=== PATIENT | male | born 1980 | race Caucasian/White ===

== ENCOUNTER 2020-07-26 19:07 | Inpatient (IN) | payer BC, OTHER ==
[~2020-07-26] VITALS: Ht 172.7 cm; Wt 119.3 kg
--- NOTE | ~2020-07-26 | CON ---
[address] [address] CONSULTATION Name: MELISSA VERMA Room: [address] IN M.R.#: [id number] Admission: 07/26/20 Attend Phys: Stephen Berkowitz MD Discharge: Date of : 84 Report #: [id number] THIS REPORT FOR: //name// cc: JOSE FRANCISCO Kan family physician/PCP JOSE FRANCISCO - [place] family physician/PCP ~ THIS REPORT FOR: //name// CC: [facility] physician/PCP Stephen Berkowitz DATE OF SERVICE: 07/27/2020 CONSULT REQUESTED BY: Armani Joyce DO. INDICATION FOR CONSULTATION: Acute hypoxemic respiratory failure. HISTORY OF PRESENT ILLNESS: This is a 40-year-old gentleman. He is overweight and does appear to have a history consistent with obstructive sleep apnea, not previously diagnosed. His body mass index is elevated to 41. The patient otherwise has been in good health and does not have a history of cardiac or respiratory disease. The patient has now presented to the Emergency Room with the last several days' history of acute shortness of breath. The patient also had a cough. Cough has been either nonproductive or he has brought up small amounts of sputum, he was not able to describe the color of sputum to me. The patient was found to be severely hypoxemic upon arrival. He has been placed on a BiPAP and currently his O2 saturation is being maintained with a BiPAP of 12/6, but he is needing 80% FiO2. The patient remains tachypneic as well with respiratory rates up to 30. He does not in fact have any known history of contact with COVID-19 infected persons. He is not complaining of chest pain. He does not have upper respiratory complaints. He does not have fever or chills. The patient does have swelling of lower extremities. There is no calf pain. He does not have nausea, vomiting, diarrhea or constipation. He denies any urinary complaints. I asked him 12 questions for review of systems. The patient answered to the negative for all other questions except as mentioned above. When I asked him, the patient reported no fevers. According to the ER records, the patient did have a fever for the last 2 weeks. His T-max since arrival is 37.2. PAST MEDICAL HISTORY: Morbid obesity, body mass index is 41. There is a clinical history consistent with obstructive sleep apnea, not previously diagnosed. There is no other past medical history. SOCIAL HISTORY: There is no known history of smoking, ethanol abuse or drug abuse. CURRENT MEDICATIONS: [place] [address] CONSULTATION Name: MELISSA VERMA 111 Room: [address]#: [id number] Admission: 07/26/20 Attend Phys: Stephen Berkowitz MD Discharge: Date of : 84 Report #: [id number] HOME MEDICATIONS: There are no known current home medications. ALLERGIES: No known drug allergies. FAMILY HISTORY: There is no history of COVID-19 in his family. PHYSICAL EXAMINATION: GENERAL: He is an alert, awake and oriented. VITAL SIGNS: Pulse of 70 and blood pressure of 121/82. He is saturating in the high 90s, but he is on 80% BiPAP. He is afebrile with a temperature of 36.6. His temperature was elevated to 37.2 earlier. HEENT: Head is normocephalic and atraumatic. Pupils are equal and reactive. Throat examination is limited due to the presence of BiPAP. Airway does appear to be narrow. I do not see any obvious throat erythema. NECK: Does not show raised JVP, asymmetry, mass or lymph nodes. CHEST: Symmetrical expansion on inspection and palpation. On auscultation, breath sounds are bilaterally equal, decreased, expirations are prolonged. I do not hear any added sounds. HEART: Regular. There is no murmur. ABDOMEN: Soft and nontender. EXTREMITIES: Lower extremities do show 1+ edema bilaterally. There is no calf tenderness. SKIN: Dry and intact. NEUROLOGICAL: Moves all extremities bilaterally equally and spontaneously with no focal deficit identified. LABORATORY DATA: The patient's CTA chest films as well as report are reviewed. There are extensive infiltrates bilaterally consistent with ARDS secondary to infectious etiology. COVID-19 certainly can lead to this picture in alternate explanation, but less likely explanation will be cardiogenic pulmonary edema. The patient's chest x-ray does not show additional findings. The patient's CBC from this morning as well as chemistries performed yesterday are reviewed. I have added chemistries to this morning's labs and these are pending. Arterial blood gas is in [facility] and this is reviewed. Urinalysis in [facility] reviewed. COVID-19 antigen is negative, the PCR is pending. D-dimer was elevated to 1.41. ASSESSMENT AND PLAN: 1. Acute hypoxemic respiratory failure. It appears likely that the patient has acute respiratory distress syndrome, much less likely, but possible etiology will be cardiogenic pulmonary edema secondary to congestive heart failure. Note that the patient is 40 years old and does not have a previous history of cardiac disease. At this time, I have adjusted BiPAP settings to change to average volume assured pressure support, which should help us potentially limit the duration of time, the patient is on a BiPAP. We will see if we can limit BiPAP [address] [address] CONSULTATION Name: MELISSA VERMA 111 Room: [address] M.R.#: [id number] Admission: 07/26/20 Attend Phys: Stephen Berkowitz MD Discharge: Date of : 84 Report #: [id number] to while asleep and p.r.n. We will place him on a continuous pulse oximetry and titrate down FiO2. We will see if we can arrange a heated high-flow oxygen yenifer for use while he is awake. The patient, however, was tachypneic at the time of my examination and we will need to watch the respiratory rate in case we do put him on a heated high-flow nasal cannula. 2. Pulmonary infiltrates/suspected COVID-19/suspected acute respiratory distress syndrome. Considering his severe hypoxemia and respiratory failure, pending further evaluation, I do recommend that we treat him with remdesivir in addition to dexamethasone. I will also broadly cover him with antibiotics. He is currently on azithromycin and ceftriaxone. I switched his ceftriaxone over to Zosyn. I intended to also give him MRSA coverage. I have ordered several labs. We will review labs from this morning and then decide regarding which agent is used to provide him with MRSA coverage. We will continue with atypical coverage as well. 3. Fluid overload/edema. It will certainly also be possible that the patient has cardiomyopathy. This could be a less likely, but possible etiology of this picture. Recommend checking a troponin I. Recommend checking an echo. We will do venous Dopplers as well. CTA chest does not show any blood clots. I do not have a strong feeling either way regarding continuing with high dose anticoagulation or cutting it down to prophylactic dose. There is some evidence of better outcomes if larger than usual dose of Lovenox is used in the patient with COVID-19. I did not change the order per the primary service. 4. Bronchospasm. Breath sounds are decreased, expirations are prolonged. He is tachypneic. I feel that there is bronchospasm as well. Therefore, a rather large dose of dexamethasone of 10 mg q.8 hours, which is approximately equivalent to Solu-Medrol 50 mg q.8 hours, is ordered. This could be cut back this weekend if the patient improves. He is on a negative pressure room and therefore, I will also give him Brovana twice a day. 5. Gastrointestinal prophylaxis. We will order Protonix until the steroid dose is lowered. 6. Clostridium difficile prophylaxis, Florastor. 7. Suspected obstructive sleep apnea. See discussion above. Plan a sleep study outpatient later. The patient is critically ill at this time. Total time spent providing critical care to this patient today exceeds 45 minutes. By: [id number] Hawkins MD /nt
[~2020-07-26 19:07] MED LIST: AMOXICILLIN500 M1 PO
[2020-07-26 20:01] LABS: HEMOGLOBIN 13.2 gm/dL (14.0-18.0); MCH 30.7 pg (26.0-34.0); MCHC 34.7 g/dL (28.0-37.0); MCV 88.5 fL (80.0-100.0); NUCLEATED RBCS 0 /100WBC; PLATELET COUNT* 280 thou/uL (150-400); WBC 6.3 thou/uL (4.0-11.0)
[2020-07-26 20:19] LABS: CREATININE 1.2 mg/dL (0.6-1.3); POTASSIUM 3.7 mmol/L (3.5-5.1)
[2020-07-26 20:24] LABS: ABSOLUTE BASOPHILS 0.1 thou/uL (0.0-0.2); ABSOLUTE EOSINOPHILS 0.1 thou/uL (0.0-0.7); ABSOLUTE LYMPHOCYTES 0.9 thou/uL (0.8-5.3); ABSOLUTE MONOCYTES 0.3 thou/uL (0.0-1.2); ALBUMIN 2.9 g/dL (3.4-5.0); ATYPICAL LYMPHS 4 %; PLATELET ESTIMATE ADEQUATE; TOTAL BILIRUBIN 0.5 mg/dL (<0.1-1.0); TOTAL PROTEIN 7.6 g/dL (6.4-8.2)
[2020-07-26 21:06] LABS: BE -0.1 mmol/L (-2 to +3); PCO2 38.4 mmHg (35.0-45.0); pH 7.418 (7.340-7.450)
[2020-07-26 21:09] LABS: PO2 55.2 mmHg (75.0-100.0)
--- NOTE | 2020-07-26 22:42 | NUR ---
REPORT GIVEN TO INEZ ENGLAND. PT BEING ADMITTED TO ROOM 225.
[2020-07-26 22:44] VITALS: BP 147/85
[2020-07-26 23:00] VITALS: BP 132/83
[2020-07-27 05:22] VITALS: BP 121/82
--- NOTE | 2020-07-27 05:31 | NUR ---
PT ADMITTED TO FLOOR AT 2300 VIA ER NURSE VIBHA. PT PLACED IN ENHANCED PERCAUTIONS PENDING COVID PCR TEST. PT TO REMAIN ON BIPAP IN NEG PRESSURE ROOM. COMPLETED ASSESSMENT AT BEDSIDE, PLEASE REFER TO CHARTING FOR DETAILS. MEDICATIONS ADMINISTERED PER MAR. HOURLY ROUNDING IN PLACE FOR SAFETY. ALL CURRENT NEEDS HAVE BEEN MET, PT ASLEEP IN BED WITH CALL LIGHT WITHIN REACH.
[2020-07-27 10:29] LABS: CHOLESTEROL 189 mg/dL (<200); HDL CHOLESTEROL 24 mg/dL (>40); LDL CHOLESTEROL 113 mg/dL (<100); TC:HDL 7.9 Ratio (Not establshd); TRIGLYCERIDE 261 mg/dL (<150); VLDL 52 mg/dL (<40)
[2020-07-27 10:31] LABS: SERUM ASSESSMENT Clear
[2020-07-27 10:40] LABS: % SATURATION 19 % (20-39); IRON 34 ug/dL (50-175)
[2020-07-27 11:07] LABS: ABSOLUTE LYMPHOCYTES 0.4 thou/uL (0.8-5.3); ABSOLUTE MONOCYTES 0.1 thou/uL (0.0-1.2); ABSOLUTE NEUTROPHILS 5.1 thou/uL (1.6-8.1); BASOPHILS 0.1 %; HEMATOCRIT 37.8 % (42.0-52.0); MCH 30.6 pg (26.0-34.0); MCHC 34.3 g/dL (28.0-37.0); MCV 89.1 fL (80.0-100.0); MONOCYTES 2.4 %; MPV 7.3 fl. (7.2-11.1); NUCLEATED RBCS 0 /100WBC; PLATELET COUNT* 284 thou/uL (150-400); POLYS 90.5 %; RBC 4.24 mil/uL (4.50-6.00); WBC 5.7 thou/uL (4.0-11.0)
[2020-07-27 11:09] LABS: CALCIUM 8.2 mg/dL (8.5-10.1); CREATININE 0.9 mg/dL (0.6-1.3); POTASSIUM 4.1 mmol/L (3.5-5.1)
[2020-07-27 11:14] LABS: ALBUMIN 2.8 g/dL (3.4-5.0); TOTAL BILIRUBIN 0.5 mg/dL (<0.1-1.0); TOTAL PROTEIN 7.5 g/dL (6.4-8.2)
--- NOTE | 2020-07-27 11:23 | NUR ---
Pt is A&O. Resides at home with his . Normally active and independent. No DME. No hx of HH or SNF. Goal is home at hi. PUI. Ramirez consulted. On bipap.
[2020-07-27 14:18] LABS: BE -0.1 mmol/L (-2 to +3); PCO2 40.8 mmHg (35.0-45.0); PO2 63.7 mmHg (75.0-100.0); pH 7.399 (7.340-7.450)
--- NOTE | 2020-07-27 15:33 | 2DMMODE ---
[place] [address] 2 D/M-MODE ECHOCARDIOGRAM Name: MELISSA VERMA 111 Room: [address] IN R#: [id number] Admission: 07/26/20 Attend Phys: Stephen Berkowitz, Discharge: Date of : 84 Date of Service: 07/27/20 1533 Report #: [id number] THIS REPORT FOR: cc: FAM - No family physician/PCP FAM - No family physician/PCP Garret Nino MD [facility] ~ APPROVED REPORT Study performed: 07/27/2020 14:32:35 EXAM: Comprehensive 2D, Doppler, and color-flow Echocardiogram Patient Location: In-Patient Room #: 200 Status: routine BSA: 2.31 HR: 85 bpm BP: 121/82 mmHg Rhythm: NSR Other Information Study Quality: Good Indications Dyspnea 2D Dimensions IVSd: 12.67 (7-11mm) LVOT Diam: 21.51 (18-24mm) LVDd: 45.93 mm PWd: 11.35 (7-11mm) Ascending Ao: 30.44 (22-36mm) LVDs: 26.84 (25-40mm) Aortic Root: 35.80 mm Aortic Valve AoV Peak Anam.: 1.08 m/s AO Peak Gr.: 4.63 mmHg LVOT Max P.20 mmHg AO Mean Gr.: 2.64 mmHg LVOT Mean P.86 mmHg LVOT Max V: 1.02 m/s AO V2 VTI: 20.86 cm LVOT Mean V: 0.62 m/s JESS (VTI): 3.43 cm2 LVOT V1 VTI: 19.67 cm Mitral Valve E/A Ratio: 1.33 MV Decel. Time: 188.55 ms MV E Max Naam.: 0.70 m/[place] [address] 2 D/M-MODE ECHOCARDIOGRAM Name: MELISSA VERMA 111 Room: [address] IN [facility].#: [id number] Admission: 07/26/20 Attend Phys: Stephen Berkowitz, Discharge: Date of : 84 Date of Service: 07/27/20 1533 Report #: [id number] MV PHT: 54.68 ms MVA (PHT): 4.02 cm2 TDI Medial E' Anam.: 0.14 m/s Lateral E' Anam.: 0.15 m/s Pulmonary Valve PV Peak Anam.: 1.01 m/s PV Peak Gr.: 4.12 mmHg Left Ventricle The left ventricle is normal size. There is normal LV segmental wall motion. Borderline concentric left ventricular hypertrophy. Left ventricular systolic function is normal. The left ventricular ejection fraction is within the normal range. LVEF is 65%. The left ventricular diastolic function is normal. Right Ventricle The right ventricle is normal size. The right ventricular systolic function is normal. Atria The left atrium size is normal. The right atrium size is normal. Aortic Valve The aortic valve is normal in structure. No aortic regurgitation is present. There is no aortic valvular stenosis. Mitral Valve The mitral valve is normal in structure. There is no mitral valve regurgitation noted. No evidence of mitral valve stenosis. Tricuspid Valve The tricuspid valve is normal in structure. Trace tricuspid regurgitation. Unable to assess PA pressure. Pulmonic Valve The pulmonary valve is normal in structure. There is no pulmonic valvular regurgitation. Great Vessels The aortic root is normal in size. IVC is normal in size and collapses >50% with inspiration[place] [address] 2 D/M-MODE ECHOCARDIOGRAM Name: MELISSA VERMA 111 Room: [address] IN [facility]#: [id number] Admission: 07/26/20 Attend Phys: Stephen Berkowitz, Discharge: Date of : 84 Date of Service: 07/27/20 1533 Report #: [id number] There is no pericardial effusion. <Conclusion> The left ventricle is normal size. Left ventricular systolic function is normal. The left ventricular ejection fraction is within the normal range. LVEF is 65%. The left ventricular diastolic function is normal. The right ventricle is normal size. The left atrium size is normal. The aortic valve is normal in structure. The mitral valve is normal The tricuspid valve is normal in structure. IVC is normal in size and collapses >50% with inspiration. There is no pericardial effusion. There is normal LV segmental wall motion. Borderline concentric left ventricular hypertrophy. <ELECTRONICALLY SIGNED> By: Garret Nino MD, [facility] 07/27/20 1533 1533 1533 Garret Nino MD, FAC /INF
[2020-07-27 16:30] VITALS: BP 123/89
--- NOTE | 2020-07-27 16:51 | NUR ---
PT A&OX4 VSS, PT REMAINS ON BIPAP. IV TO LAC AND RFA REMAIN PATENT, DRESSINGS C/D/I. SKIN CLEAN, DRY INTACT. DENIES PAIN. PT IS NOW ACCUCHECK, INSULIN ORDERED ON SLIDING SCALE. IV ABX CONTINUE, REMDESIVIR ADDED TO MAR WELL. PT REMAINS CONTINENT OF B/B, URINAL AT BEDSIDE. 750ML EMPTIED THIS AFTERNOON FOLLOWING DOSE OF FUROSEMIDE. DR ASENCIO TO UPDATE PT REQUESTED BY PT. PT PROVIDED PHONE SEWER HEAD FROM HOME AND ASSISTED IN SETTING IT UP AT BEDSIDE. PT RESTS IN BED WITH CALL LIGHT IN REACH. WILL CONTINUE TO MONITOR.
[2020-07-27 17:53] LABS: CALCIUM 8.4 mg/dL (8.5-10.1); MAGNESIUM 2.5 mg/dL (1.8-2.4); POTASSIUM 4.1 mmol/L (3.5-5.1)
[2020-07-27 22:45] LABS: INFLUENZA A ANTIGEN Negative (Negative); INFLUENZA B ANTIGEN Negative (Negative)
[2020-07-28 02:06] LABS: GLYCOHEMOGLOBIN (HGB A1C) 5.5 % (4.8-5.6); HIV-1/HIV-2 ANTIBODY Non Reactive (Non Reactive)
[2020-07-28 04:00] VITALS: BP 104/68
[2020-07-28 04:29] LABS: ABSOLUTE LYMPHOCYTES 0.5 thou/uL (0.8-5.3); ABSOLUTE MONOCYTES 0.3 thou/uL (0.0-1.2); ABSOLUTE NEUTROPHILS 5.7 thou/uL (1.6-8.1); BASOPHILS 0.3 %; HEMATOCRIT 36.2 % (42.0-52.0); HEMOGLOBIN 12.4 gm/dL (14.0-18.0); MCH 30.4 pg (26.0-34.0); MCHC 34.2 g/dL (28.0-37.0); MCV 88.8 fL (80.0-100.0); MONOCYTES 4.6 %; MPV 6.9 fl. (7.2-11.1); NUCLEATED RBCS 0 /100WBC; PLATELET COUNT* 302 thou/uL (150-400); POLYS 87.1 %; RBC 4.08 mil/uL (4.50-6.00); RDW-CV 14.1 % (10.5-14.5); WBC 6.6 thou/uL (4.0-11.0)
[2020-07-28 04:55] LABS: ALBUMIN 2.5 g/dL (3.4-5.0); POTASSIUM 4.4 mmol/L (3.5-5.1); TOTAL BILIRUBIN 0.4 mg/dL (<0.1-1.0); TOTAL PROTEIN 7.1 g/dL (6.4-8.2)
--- NOTE | 2020-07-28 05:45 | NUR ---
ASSUMED CARE OF PT AT 1900. PT IS ALERT AND ORIENTED. VSS. PERRLA. NO COMPLAINTS OF PAIN. PT TOLERATING BIPAP WELL. PT IS IN SINUS RYTHM ON THE TELEMETRY. PT IS RESTING COMFORTABLY IN BED. RESPIRATIONS ARE EVEN AND NONLABORED. WILL CONTINUE TO MONITOR PT.
[2020-07-28 08:00] VITALS: BP 14/68
--- NOTE | 2020-07-28 11:41 | NUR ---
ASSUMED CARE OF PATIENT THIS AM AT 0730. PATIENT IS ALERT AND ORIENTED X 4. HE DENIES PAIN AND DISCOMFORT. PATIENT CONTINUES IN ISOLATION FOR PENDING COVID RESULTS. HE IS ON BIPAP PER RT. TELE SHOWS NSR. MULTIPLE IV ANTIBIOTICS ORDERED. 2ND IV STARTED IN RIGHT ARM. WILL CONTINUE TO MONITOR. O2 SATS >95%.
[2020-07-28 13:06] VITALS: BP 124/80
[2020-07-28 16:49] VITALS: BP 126/86
[2020-07-28 21:11] VITALS: BP 135/81
[2020-07-29] VITALS: BP 113/68
[2020-07-29 04:00] VITALS: BP 124/76
--- NOTE | 2020-07-29 06:11 | NUR ---
PT SLEPT ON AND OFF THIS SHIFT. ASSESSMENT DOCUMENTED. MEDS GIVEN PER E-JAN. IV PATENT, ABX INFUSED. PT PULLED OUT HIS 2ND IV THIS SHIFT. NO REPORTS OF PAIN. PT WORE BIPAP WHILE ASLEEP, HIGH FLOW NC AT 40L WHILE AWAKE. ISOLATION MAINTAINED. WILL CONTINUE WITH PLAN OF CARE.
[2020-07-29 08:00] VITALS: BP 127/86
[2020-07-29 08:02] LABS: HEMATOCRIT 34.2 % (42.0-52.0); HEMOGLOBIN 11.4 gm/dL (14.0-18.0); MCH 29.6 pg (26.0-34.0); MCHC 33.3 g/dL (28.0-37.0); MCV 88.9 fL (80.0-100.0); MPV 7.9 fl. (7.2-11.1); NUCLEATED RBCS 0 /100WBC; PLATELET COUNT* 373 thou/uL (150-400); RBC 3.85 mil/uL (4.50-6.00); RDW-CV 14.2 % (10.5-14.5); WBC 13.7 thou/uL (4.0-11.0)
[2020-07-29 08:11] LABS: ALBUMIN 2.6 g/dL (3.4-5.0); CALCIUM 7.7 mg/dL (8.5-10.1); CREATININE 1.1 mg/dL (0.6-1.3); POTASSIUM 4.6 mmol/L (3.5-5.1); TOTAL BILIRUBIN 0.3 mg/dL (<0.1-1.0)
[2020-07-29 10:03] LABS: ABSOLUTE LYMPHOCYTES 0.8 thou/uL (0.8-5.3); ABSOLUTE MONOCYTES 0.3 thou/uL (0.0-1.2); ABSOLUTE NEUTROPHILS 12.6 thou/uL (1.6-8.1)
[2020-07-29 10:04] LABS: PLATELET ESTIMATE ADEQUATE
[2020-07-29 10:10] LABS: URINE BILIRUBIN NEGATIVE (Negative); URINE BLOOD NEGATIVE (Negative); URINE CLARITY CLEAR; URINE COLOR YELLOW; URINE GLUCOSE-RANDOM NEGATIVE (Negative); URINE KETONES NEGATIVE (Negative); URINE LEUKOCYTES NEGATIVE (Negative); URINE NITRITE NEGATIVE (Negative); URINE PROTEIN NEGATIVE (Negative); URINE SPECIFIC GRAVITY 1.025 (1.005-1.030)
--- NOTE | 2020-07-29 16:00 | NUR ---
ASSUMED CARE OF PATIENT THIS AM AT 0730. PATIENT IS ALERT AND ORIENTED X 4. HE DENIES PAIN AND DISCOMFORT. TELE SHOWS CONTINUED NSR. PATIENT IS ON 40 LITERS HIGH FLOW O2. IV ANTIBIOTICS CONTINUED. UA SENT TO LAB. 2ND IV SITE STARTED FOR MEDICATION ADMINISTRATION. WILL CONTINUE TO MONITOR PATIENT PROGRESS. NO FALLS OR INJURY.
[2020-07-29 17:23] VITALS: BP 129/81
[2020-07-29 22:00] VITALS: BP 126/87
[2020-07-30 04:00] VITALS: BP 131/86
--- NOTE | 2020-07-30 06:32 | NUR ---
PT A&OX4, ON 35L NC HIGH FLOW-BIPAP WHILE SLEEPING, VSS, PT SR ON TELE MONITOR, IV ABX GIVEN ORDERED, FLUID RESTRICTION MAINTAINED - PHYSICIAN NOTE OF 07/29 STATES, "HYPONATREMIA CORRECTED, WILL DC FLUID RESTRICTION" - WILL PASS ON TO DAY SHIFT. PT DENIES ANY PAIN OR DISCOMFORT THIS SHIFT. ACCU CHECK COMPLETED, ASSESSEMENT AND ROUNDINGS COMPLETE. WILL CONTINUE TO MONITOR.
[2020-07-30 08:55] VITALS: BP 136/91
--- NOTE | 2020-07-30 10:46 | NUR ---
PT IS IN BED ALERT AND ORIENTED X4 DENIES PAIN OR DISCOMFORT "READY TO GO HOME" LSCTA HACKING COUGH AT TIMES 35L ON HI-FRAN CALL LIGHT IN REACH NO CONERNS BESIDES GETTING OUT OF HERE FROM PATIENT
[2020-07-30 12:42] LABS: ABSOLUTE MONOCYTES 0.7 thou/uL (0.0-1.2); ABSOLUTE NEUTROPHILS 13.3 thou/uL (1.6-8.1); EOSINOPHILS 0.3 %; HEMOGLOBIN 11.7 gm/dL (14.0-18.0); LYMPHOCYTES 6.5 %; MCH 30.2 pg (26.0-34.0); MCHC 33.4 g/dL (28.0-37.0); MCV 90.2 fL (80.0-100.0); MONOCYTES 4.5 %; MPV 7.9 fl. (7.2-11.1); NUCLEATED RBCS 0 /100WBC; PLATELET COUNT* 404 thou/uL (150-400); POLYS 88.7 %; RBC 3.89 mil/uL (4.50-6.00); RDW-CV 14.2 % (10.5-14.5)
[2020-07-30 12:50] LABS: ALBUMIN 2.5 g/dL (3.4-5.0); CALCIUM 7.8 mg/dL (8.5-10.1); MAGNESIUM 2.5 mg/dL (1.8-2.4); PHOSPHORUS* 4.4 mg/dL (2.5-4.9); POTASSIUM 4.2 mmol/L (3.5-5.1); TOTAL BILIRUBIN 0.3 mg/dL (<0.1-1.0); TOTAL PROTEIN 6.4 g/dL (6.4-8.2)
[2020-07-30 20:39] VITALS: BP 133/86
[2020-07-30 23:57] VITALS: BP 140/77
[2020-07-31 04:29] VITALS: BP 133/83
[2020-07-31 04:43] LABS: ABSOLUTE LYMPHOCYTES 1.1 thou/uL (0.8-5.3); ABSOLUTE MONOCYTES 0.7 thou/uL (0.0-1.2); ABSOLUTE NEUTROPHILS 12.1 thou/uL (1.6-8.1); BASOPHILS 0.2 %; HEMATOCRIT 35.7 % (42.0-52.0); LYMPHOCYTES 7.7 %; MCHC 33.6 g/dL (28.0-37.0); MCV 89.2 fL (80.0-100.0); MONOCYTES 5.1 %; MPV 7.5 fl. (7.2-11.1); NUCLEATED RBCS 0 /100WBC; PLATELET COUNT* 416 thou/uL (150-400); RBC 4.01 mil/uL (4.50-6.00); RDW-CV 14.1 % (10.5-14.5); WBC 13.9 thou/uL (4.0-11.0)
--- NOTE | 2020-07-31 05:10 | NUR ---
PT IS ABLE TO COMMUNICATE HIS NEEDS TO STAFF EFFECTIVELY. HE HAS DENIED THE NEED FOR PAIN MEDICATION UP TO THIS TIME. PT HAS BEEN WEARING HIS BIPAP OVERNIGHT WHILE SLEEPING. ENHANCED ISOLATION FOR COVID-19+ TESTING MAINTAINED.
[2020-07-31 05:36] LABS: ALBUMIN 2.5 g/dL (3.4-5.0); CALCIUM 7.7 mg/dL (8.5-10.1); CREATININE 0.9 mg/dL (0.6-1.3); MAGNESIUM 2.5 mg/dL (1.8-2.4); POTASSIUM 4.3 mmol/L (3.5-5.1); TOTAL BILIRUBIN 0.4 mg/dL (<0.1-1.0); TOTAL PROTEIN 6.3 g/dL (6.4-8.2)
[2020-07-31 08:00] VITALS: BP 154/89
[2020-07-31 12:00] VITALS: BP 130/80
--- NOTE | 2020-07-31 12:55 | NUR ---
CM faxed letter to Pt's employer confirming hospitalization. Covid positive.
--- NOTE | 2020-07-31 14:12 | NUR ---
Nutrition: Pt admitted COVID+. RD did not enter room. On bipap for sleep. Insulin, steroids. Fluid restriction. Pt with fluid overload, edema. Wt: 265#.H/o OBE, JUAN. Albumin 2.5, prealb 28.6, BG 151-217. BG is elevated. No meal intake recorded yet. No nutrition interventions needed at this time. RD is available if needed. Consider low nutrition risk. GOALS: good meal intake, good BG control.
[2020-07-31 16:41] VITALS: BP 133/86
[2020-07-31 20:27] VITALS: BP 125/89
[2020-08-01] VITALS: BP 131/91
[2020-08-01 04:00] VITALS: BP 122/76
[2020-08-01 04:54] LABS: HEMATOCRIT 39.3 % (42.0-52.0); MCH 29.4 pg (26.0-34.0); MCHC 33.2 g/dL (28.0-37.0); MCV 88.7 fL (80.0-100.0); MPV 7.7 fl. (7.2-11.1); NUCLEATED RBCS 0 /100WBC; PLATELET COUNT* 468 thou/uL (150-400); RBC 4.43 mil/uL (4.50-6.00); WBC 13.4 thou/uL (4.0-11.0)
--- NOTE | 2020-08-01 05:03 | NUR ---
PT IS ABLE TO COMMUNICATE HIS NEEDS TO STAFF EFFECTIVELY. HE HAS DENIED THE NEED FOR PAIN MEDICATION UP TO THIS TIME. HE HAS BEEN WEARING HIS BIPAP AT NIGHT WHILE SLEEPING. ENHANCED ISOLATION PRECAUTIONS FOR COVID-19+ TEST MAINTAINED. XR CONFIRMS PICC LINE PLACED ON 07/31 IS NOT IN CORRECT SPOT; DO NOT USE RIGHT ARM PICC.
[2020-08-01 05:19] LABS: CALCIUM 7.9 mg/dL (8.5-10.1); CREATININE 1.1 mg/dL (0.6-1.3); MAGNESIUM 2.5 mg/dL (1.8-2.4); POTASSIUM 4.3 mmol/L (3.5-5.1)
[2020-08-01 05:20] LABS: PREALBUMIN 35.1 mg/dL (18.0-35.7)
[2020-08-01 05:31] LABS: ABSOLUTE LYMPHOCYTES 0.9 thou/uL (0.8-5.3); ABSOLUTE MONOCYTES 1.2 thou/uL (0.0-1.2); ABSOLUTE NEUTROPHILS 11.3 thou/uL (1.6-8.1); MYELOCYTES 1 %; PLATELET ESTIMATE INCREASED
[2020-08-01 05:32] LABS: ANISOCYTOSIS 1+; POIKILOCYTOSIS 1+; POLYCHROMASIA 1+
[2020-08-01] MEDS ORDERED: DEXAMETHASONE 44 M1 PO (09:28)
[2020-08-01] MEDS ORDERED: PROAIR HFA8.5 GM INH (09:28)
[2020-08-01] MEDS ORDERED: FLORASTOR250 MG PO (09:28)
[2020-08-01 10:53] VITALS: BP 122/76
--- NOTE | 2020-08-01 11:07 | NUR ---
Pt medically stable to dc to home today pending pulm signing off. Ex ox to be completed prior to dc to determine if Pt will need home o2 set up.
[2020-08-01 12:12] VITALS: BP 123/88
--- NOTE | 2020-08-01 12:45 | NUR ---
PT DISCHARGING HOME AWARE OF SELF QUARANTINE NO CONCERNS
== END 2020-08-01 12:55 | disposition home or self-care (01) | DRG 177 ==
LOC: M.ERS 19:07 → M.2W 21:46 → M.TBA-ER 21:46 → M.2W 22:27
PROVIDERS: Emergency Medicine; Internal Medicine; Internal Medicine Critical Care Medicine; ADMIT Internal Medicine; ATTEND Internal Medicine
PROC: 5A09457 Assistance with Respiratory Ventilation, 24-96 Consecutive Hours, Continuous Positive Airway Pressure (ICD-10-PCS; principal; 2020-07-26)
PROC: XW033E5 Introduction of Remdesivir Anti-infective into Peripheral Vein, Percutaneous Approach, New Technology Group 5 (ICD-10-PCS; 2020-07-27)
PROC: XW033E5 Introduction of Remdesivir Anti-infective into Peripheral Vein, Percutaneous Approach, New Technology Group 5 (ICD-10-PCS; 2020-07-28)
PROC: 5A09357 Assistance with Respiratory Ventilation, Less than 24 Consecutive Hours, Continuous Positive Airway Pressure (ICD-10-PCS; 2020-07-28)
PROC: 5A09357 Assistance with Respiratory Ventilation, Less than 24 Consecutive Hours, Continuous Positive Airway Pressure (ICD-10-PCS; 2020-07-29)
PROC: 5A09357 Assistance with Respiratory Ventilation, Less than 24 Consecutive Hours, Continuous Positive Airway Pressure (ICD-10-PCS; 2020-07-30)
PROC: 02HV33Z Insertion of Infusion Device into Superior Vena Cava, Percutaneous Approach (ICD-10-PCS; 2020-07-31)
PROC: 5A09357 Assistance with Respiratory Ventilation, Less than 24 Consecutive Hours, Continuous Positive Airway Pressure (ICD-10-PCS; 2020-07-31)
PROC: B548ZZA Ultrasonography of Superior Vena Cava, Guidance (ICD-10-PCS; 2020-07-31)
PROC: 5A09357 Assistance with Respiratory Ventilation, Less than 24 Consecutive Hours, Continuous Positive Airway Pressure (ICD-10-PCS; 2020-08-01)
DX: U07.1 COVID-19 (principal); J12.89 Other viral pneumonia; J96.01 Acute respiratory failure with hypoxia; E87.1 Hypo-osmolality and hyponatremia; D68.59 Other primary thrombophilia; Z68.41 Body mass index [BMI] 40.0-44.9, adult; E78.5 Hyperlipidemia, unspecified; R74.0 Nonspecific elevation of levels of transaminase and lactic acid dehydrogenase [LDH]; G47.33 Obstructive sleep apnea (adult) (pediatric); E66.01 Morbid (severe) obesity due to excess calories; D63.1 Anemia in chronic kidney disease; Z79.899 Other long term (current) drug therapy